=== PATIENT | female | born 1945 | race Caucasian/White ===

== ENCOUNTER → 2024-11-01 13:46 | Outpatient (CLI) | payer MEDICARE, OTHER, SELFPAY ==
--- NOTE | 2024-11-01 13:51 | DI.CT.S_ITS ---
PROCEDURE: CT CHEST W CON INDICATIONS: PLEURAL MASS TECHNIQUE: After the administration of intravenous contrast, 5 mm thick sections acquired from the pulmonary apices to the posterior costophrenic angles. 1 mm axial lung, 5 mm thick coronal and sagittal reformats and 7 mm axial MIP were acquired. For radiation dose reduction, the following was used: automated exposure control, adjustment of mA and/or kV according to patient size. COMPARISON: None. FINDINGS: Image quality: Diagnostic. Lower Neck: No enlarged lymph nodes. Thyroid: No thyroid nodules which require sonographic follow up, per consensus guidelines. Axillae: No enlarged lymph nodes. Chest Wall: Unremarkable. Bones: No suspicious osseous lesion. Multilevel DDD. Lungs and Pleura: No pneumothorax or pleural effusions. No pleural calcification. Right upper/mid pleural nodule measuring 2.3 x 1.2 cm, (2/45). (Not significantly changed in size per report). Smooth borders. No changes to the underlying bone. No calcification. Measures 32 Hounsfield units. No significant pulmonary nodules. No acute airspace opacity. Heart: Heart size is normal. Mitral annular calcification. No pericardial effusion. Thoracic Vessels: The aorta and pulmonary arteries demonstrate normal size. No central pulmonary embolism. Mediastinum and Marge: No enlarged lymph nodes. Esophagus: No wall thickening. No hiatal hernia. Upper Abdomen: Benign cysts in the liver. No adrenal nodule. IMPRESSION: 1. Right upper/mid pleural nodule measuring 2.3 cm. No aggressive features. 2. No adenopathy. No pleural effusion. 3. No significant pulmonary nodules. Dictated by: Patrick Bailon M.D. on 11/02/2024 at 17:04 Approved by: Patrick Bailon M.D. on 11/02/2024 at 17:19
== END ==
PROVIDERS: Referring Provider Family Medicine; Visit Provider Family Medicine
DX: J94.8 Other specified pleural conditions (principal); I34.81 Nonrheumatic mitral (valve) annulus calcification; K76.89 Other specified diseases of liver
CPT/HCPCS: 71260; Q9967